=== PATIENT | female | born 1985 | race Caucasian/White ===

== ENCOUNTER → 2016-09-22 | Outpatient (CLI) | payer OTHER ==
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
== END ==
LOC: CIMAGING 10:08
PROVIDERS: ATTEND Physical Medicine & Rehabilitation
DX: M54.6 Pain in thoracic spine (principal)
CPT/HCPCS: 72072-PO